=== PATIENT | female | born 2000 | race Caucasian/White ===

== ENCOUNTER 2025-01-05 04:06 | Emergency (ER) | payer MEDICARE ==
[~2025-01-05] VITALS: Ht 167.6 cm; Wt 91.4 kg
[2025-01-05 04:59] VITALS: TEMP 98.2
[2025-01-05 07:49] LABS: COVID AG,FIA SOURCE NASAL SWAB
[2025-01-05 08:11] LABS: APPEARANCE,URINE CLEAR (CLEAR); GLUCOSE, URINE (UA) NEGATIVE (NEGATIVE); LEUKOCYTE ESTERASE ,URINE NEGATIVE (NEGATIVE); NITRATE,URINE NEGATIVE (NEGATIVE); OCCULT BLOOD,URINE SMALL (NEGATIVE); PH,URINE DRUG SCREEN 5.5 (5.0-8.0); SPECIFIC GRAVITIY, URINE 1.021 (1.003-1.030)
[2025-01-05 08:18] LABS: ALCOHOL, URINE DRUG SCREEN NEGATIVE (NEGATIVE); AMPHET/METH SCREEN,URINE NEGATIVE (NEGATIVE); BARBITURATE SCREEN, URINE NEGATIVE (NEGATIVE); CANNABINOID SCREEN,URINE POSITIVE (NEGATIVE); COCAINE SCREEN,URINE NEGATIVE (NEGATIVE); METHADONE SCREEN, URINE NEGATIVE (NEGATIVE)
[2025-01-05 08:23] VITALS: BP 129/79; PULSE 85; RESP 16; O2SAT 100
[2025-01-05 08:24] LABS: SQUAMOUS EPITHELIAL CELL,UR Few /LPF (None Seen)
[2025-01-05 08:25] LABS: SARS-COV2 (COVID) ANTIGEN,FIA Negative (Negative)
== END 2025-01-05 08:25 | disposition home or self-care (01) ==
LOC: EMS 04:10
DX: F25.9 Schizoaffective disorder, unspecified (principal); Z62.810 Personal history of physical and sexual abuse in childhood; Z20.822 Contact with and (suspected) exposure to COVID-19
CPT/HCPCS: 80307; 81001; 99283

== ENCOUNTER 2025-01-05 17:59 | Emergency (ER) | payer MEDICARE ==
[~2025-01-05] VITALS: Ht 167.6 cm; Wt 91.0 kg
[2025-01-05 22:33] VITALS: TEMP 97.3
[2025-01-05] MEDS: ACETAMINOPHEN 325 MG TABLET PO ONE (22:58)
[2025-01-05 23:44] VITALS: BP 134/75; PULSE 70; RESP 18; O2SAT 98
== END 2025-01-06 00:04 | disposition home or self-care (01) ==
LOC: EMS 17:59
DX: F25.9 Schizoaffective disorder, unspecified (principal); Z59.00 Homelessness unspecified; Z88.5 Allergy status to narcotic agent; Z88.8 Allergy status to other drugs, medicaments and biological substances
CPT/HCPCS: 99283